=== PATIENT | male | born 1960 | race Caucasian/White ===

== ENCOUNTER 2017-08-21 12:08 | Emergency (ER) | payer OTHER ==
[~2017-08-21] VITALS: Ht 170.2 cm; Wt 88.5 kg
--- NOTE | 2017-08-21 13:44 | ED UPPER/LOWER EXTREMITY COMPL ---
History of Present Illness General Chief Complaint: Laceration Procedure Stated Complaint: HAND LAC Source: patient Exam Limitations: no limitations Vital Signs & Intake/Output Vital Signs & Intake/Output Vital Signs Date Time Temp Pulse Resp B/P B/P Pulse O2 O2 Flow FiO2 Mean Ox Delivery Rate 08/21 1422 98.1 85 16 146/84 99 Room Air 08/21 1343 Room Air 08/21 1212 97.5 94 18 156/93 96 Room Air Room Air Allergies Coded Allergies: NO KNOWN ALLERGIES (12/31/13) Reconcile Medications No Known Home Medications Triage Note: TRIAGE: 57 Y/O MALE PRESENTS C/O LAC TO RIGHT THUMB S/P INCIDENT WITH DRYWALL UTILITY KNIFE. LAC 1 INCH LONG - SLIGHT ACTIVE BLEEDING NOTED. TELFA DRESSING APPLIED IN TRIAGE. LAST TETANUS - UNKNOWN Triage Nurses Notes Reviewed? yes Onset: Just prior to arrival Duration: hour(s): (1.5) Timing: no prior history Severity: moderate Severity Numbers: 5 Pain/Injury Location: Right: 1st finger. Method of Injury: laceration No Modifying Factors: none HPI: Patient is a 57-year-old male presenting to the emergency department complaining of lacerations right thumb. Symptoms started just prior to arrival. Denies being on blood thinners. No numbness or tingling. Denies any other injury. Unsure of tetanus immunization. Denies any other injury. He cut his finger on a box knife. (Meggan Montelongo) Past History Travel History Traveled to [place] past 21 day No Medical History Any Pertinent Medical History? see below for history Neurological: NONE EENT: NONE Cardiovascular: NONE Respiratory: NONE Gastrointestinal: NONE Hepatic: NONE Renal: NONE Musculoskeletal: NONE Psychiatric: NONE Endocrine: NONE Blood Disorders: NONE Cancer(s): NONE MANAGER FILTER/Reproductive: NONE Tetanus Vaccine: 08/21/17 Surgical History Surgical History: non-contributory Psychosocial History What is your primary language Spanish Tobacco Use: Never used ETOH Use: occasional use Illicit Drug Use: denies illicit drug use Family History Hx Contributory? No (Meggan Montelongo) Review of Systems Review of Systems Constitutional: Reports: no symptoms. Comments Review of systems: See HPI, All other systems negative. Constitutional, no chills fever or weight loss HEENT: No visual changes no sore throat no congestion Cardiovascular: No chest pain Skin, no jaundice no rashes Respiratory: No dyspnea cough sputum or hemoptysis GI: No nausea no vomiting Muscle skeletal: no back pain, no neck pain, Neurologic: No numbness Psych: No stress Immunology: No splenectomy or history of AIDS (Meggan Montelongo) Physical Exam Physical Exam General Appearance: well developed/nourished, no apparent distress, alert, awake , comfortable Comments: Well-developed well-nourished person in no acute distress HEENT: Atraumatic, normocephalic Neck: Normal inspection Cardiovascular: Radial pulses are 2+ bilaterally. Respiratory: . No respiratory distress. Extremity: No edema, mild tenderness to palpation over the PIP joint of the right thumb. Full range of motion of all digits without difficulty or pain. Capillary refills intact in upper extremity bilaterally. Neuro: Alert oriented x3, motor sensory normal, cranial nerves II through XII grossly intact. Skin: Linear, well approximated laceration, subcutaneous noted over the PIP joint of the right thumb. Mild active bleeding. Psych: Mood and affect is normal, memory and judgment is normal. (Meggan Montelongo) Progress Differential Diagnosis: LACERATION, ABRASION, CONTUSION, FOREIGN BODY, FRACTURE Plan of Care: Current Medications Sig/Jose Start time Last Medication Dose Stop Time Status Admin Lidocaine 20 ML ONCE ONE 08/21 1345 UNVr 08/21 (Lidocaine 1%) 08/21 1346 1346 Diagnostic Imaging: Viewed by Me: Radiology Read. Discussed w/RAD: Radiology Read. Radiology Impression: PATIENT: KVNG SCHUMACHER PRESENT AGE: 57 PATIENT ACCOUNT NO: [id number] : 58 LOCATION: [facility] ORDERING PHYSICIAN: Martin Greer MD SERVICE DATE: 08/21/17 EXAM TYPE: RAD - XRY-FINGERS, RIGHT EXAMINATION: XR FINGER, RIGHT CLINICAL INFORMATION: Laceration to the thumb. Evaluate for fracture. COMPARISON: None TECHNIQUE: PA view of the right hand is obtained. PA, oblique and lateral views of the right thumb are obtained. FINDINGS: There is no acute fracture or malalignment. There is no radiopaque foreign body. There are mild degenerative changes of the triscaphe joint. IMPRESSION: No acute fracture or foreign body. DICTATED BY: Charles Toscano MD DATE/TIME DICTATED:01/01/18 / 1340 CREDIT BALANCE SPECIALIST:ZENON DATE/TIME TRANSCRIBED:08/21/17 / 1340 CONFIDENTIAL, DO NOT COPY WITHOUT APPROPRIATE AUTHORIZATION. <Electronically signed in Other Vendor System> SIGNED BY: Charles Toscano MD 08/21/17 4273 (Meggan Montelongo) Departure Departure Disposition: HOME OR SELF CARE Condition: Stable Clinical Impression Primary Impression: Finger laceration Qualifiers: Encounter type: initial encounter Finger: thumb Damage to nail status: without damage Foreign body presence: without foreign body Laterality: right Qualified Code: S61.011A - Laceration without foreign body of right thumb without damage to nail, initial encounter Referrals: Elmer STANFORD,Wilder Carlin (PCP/Family) Additional Instructions: Return to the emergency department in 7-10 days for suture removal. Keep clean and dry. Wear splint to help avoid excessive movement. Take [id number] Motrin and Tylenol as directed for any aches or pains. Departure Forms: Customer Survey General Discharge Information Prescriptions: Current Visit Scripts No Known Home Medications (Meggan Montelongo) PA/POLE SETTER Co-Sign Statement Statement: ED Attending supervision documentation- [] I saw and evaluated the patient. I have also reviewed all the pertinent lab results and diagnostic results. I agree with the findings and the plan of care as documented in the PA's/POLE SETTER's documentation. [X] I have reviewed the ED Record and agree with the PA's/POLE SETTER's documentation. [] Additions or exceptions (if any) to the PAs/POLE SETTER's note and plan are summarized below: [] (Percy STANFORD,Martin Lopez) Procedures Splinting Location: RIGHT THUMB Manual Alignment Performed: No Pre-Made Type: metal Splint: FINGER Splint Applied By: splint applied by me Pre-Proc Neuro Vasc Exam: normal Post-Proc Neuro Vasc Exam: normal Progress: Tolerated procedure well. Laceration/Wound Repair Laceration/Wound Repair: Wound Location: upper extremity Wound's Depth, Shape: linear, subcutaneous Wound Length (cm): 2 Wound Explored: clean, no foreign body removed, irrigated extensively Irrigated w/ Saline (ccs): 500 Betadine Prep? Yes Anesthesia: 1% lidocaine Volume Anesthetic (ccs): 4 Wound Debrided: minimal Wound Repaired With: sutures Suture Size/Type: 5:0, nylon Number of Sutures: 6 Layer Closure? No Date of Last Tetanus: 08/21/17 Tetanus Status: up to date Progress: Tolerated procedure well. (Palmer BRIAN,Meggan)
[2017-08-21 14:22] VITALS: BP 146/84
== END 2017-08-21 14:22 ==
LOC: ERH 12:08
DX: S61.011A Laceration without foreign body of right thumb without damage to nail, initial encounter (principal); W45.8XXA Other foreign body or object entering through skin, initial encounter; Y92.9 Unspecified place or not applicable; Y93.9 Activity, unspecified
CPT/HCPCS: 73140-RT; 90471; 90714

== ENCOUNTER 2017-08-30 16:36 | Emergency (ER) | payer OTHER ==
[~2017-08-30] VITALS: Ht 180.3 cm; Wt 90.7 kg
[2017-08-30 16:42] VITALS: BP 170/96
--- NOTE | 2017-08-30 16:50 | ED ANIMAL BITE/WOUND CHECK ---
History of Present Illness General Chief Complaint: Suture Removal/Wound Recheck Stated Complaint: SUTURE REMOVAL Source: patient Exam Limitations: no limitations Vital Signs & Intake/Output Vital Signs & Intake/Output Vital Signs Date Time Temp Pulse Resp B/P B/P Pulse O2 O2 Flow FiO2 Mean Ox Delivery Rate 08/30 1642 96.9 82 18 170/96 97 Room Air Allergies Coded Allergies: NO KNOWN ALLERGIES (12/31/13) Reconcile Medications No Known Home Medications Triage Note: PT TO ER FOR SUTURE REMOVAL TO RIGHT THUMB. Triage Nurses Notes Reviewed? yes Onset: Abrupt Duration: day(s):, constant Timing: recent history Injury Environment: home Is Injury an Animal Bite? No No Modifying Factors: none HPI: 57-year-old male comes into the emergency room for suture removal to right hand. Denies any erythema redness on discharge. Denies any other associated symptoms. (Dieudonne Tang) Past History Travel History Traveled to [place] past 21 day No Medical History Any Pertinent Medical History? see below for history Neurological: NONE EENT: NONE Cardiovascular: NONE Respiratory: NONE Gastrointestinal: NONE Hepatic: NONE Renal: NONE Musculoskeletal: NONE Psychiatric: NONE Endocrine: NONE Blood Disorders: NONE Cancer(s): NONE FEEDER OPERATOR AUTOMATIC/Reproductive: NONE Tetanus Vaccine: 08/21/17 Surgical History Surgical History: non-contributory Psychosocial History What is your primary language Hungarian Tobacco Use: Never used Family History Hx Contributory? No (Dieudonne Tang) Review of Systems Review of Systems Constitutional: Reports: no symptoms. EENTM: Reports: no symptoms. Respiratory: Reports: no symptoms. Cardiovascular: Reports: no symptoms. GI: Reports: no symptoms. Genitourinary: Reports: no symptoms. Musculoskeletal: Reports: no symptoms. Skin: Reports: see HPI. Neurological/Psychological: Reports: no symptoms. Hematologic/Endocrine: Reports: no symptoms. Immunologic/Allergic: Reports: no symptoms. All Other Systems: Reviewed and Negative (Dieudonne Tang) Physical Exam Physical Exam General Appearance: well developed/nourished, mild distress Head: atraumatic Eyes: Bilateral: normal appearance. Ears, Nose, Throat: normal ENT inspection, hearing grossly normal Neck: normal inspection Respiratory: no respiratory distress Back: normal inspection Extremities: sutures right hand, no erythema, no warmth, Neurologic/Psych: awake, alert, oriented x 3, normal mood/affect Skin: intact, normal color, warm/dry (Dieudonne Tang) Progress Differential Diagnosis: abscess, cellulitis, joint infection, tenosysnovitis Plan of Care: 08/30/2017 5:08:40 PM All sutures removed. (Dieudonne Tang) Departure Departure Disposition: HOME OR SELF CARE Condition: Stable Clinical Impression Primary Impression: Visit for suture removal Referrals: Elmer STANFORD,Wilder Carlin (PCP/Family) Ruben STANFORD,Christian Additional Instructions: Please go over all results of today's visit with your primary care doctor. Contact your primary care doctor to let them know you were here in the emergency room. There may be nonspecific findings which may not be related to your visit today here in the emergency room but may require further evaluation and chronic monitoring by your primary care doctor. If you had a laceration today the chance of foreign body always remains. You should follow-up with your primary care doctor for recheck in 3-5 days for a wound check. If you had an x-ray done there is a chance that a fracture could have been missed on initial read and you should follow-up with your primary care doctor for repeat x-rays if symptoms persist. If your blood pressure was elevated here in the emergency room please have rechecked by [facility] primary care doctor within the next 48. If you were prescribed a narcotic here in the emergency room or any type of controlled substances you're not allowed to drive while taking this medication or operate any type of heavy machinery. Narcotics can make you feel lightheaded dizziness nausea and can cause constipation. You may need to garbage pick up worker a stool softener. Thank you for choosing [facility] emergency room. Please return to the emergency room immediately if you have any other concerns worsening of symptoms. Departure Forms: Customer Survey General Discharge Information Prescriptions: Current Visit Scripts No Known Home Medications (Dieudonne Tang) PA/CLOTH SECONDS SORTER Co-Sign Statement Statement: ED Attending supervision documentation- [] I saw and evaluated the patient. I have also reviewed all the pertinent lab results and diagnostic results. I agree with the findings and the plan of care as documented in the PA's/CLOTH SECONDS SORTER's documentation. [X] I have reviewed the ED Record and agree with the PA's/CLOTH SECONDS SORTER's documentation. [] Additions or exceptions (if any) to the PAs/CLOTH SECONDS SORTER's note and plan are summarized below: [] (Bobbi STANFORD,Sharon)
== END 2017-08-30 17:12 ==
LOC: ERH 16:36
DX: Z48.02 Encounter for removal of sutures (principal)